=== PATIENT | female | born 1955 | race Hispanic/Latino ===

== ENCOUNTER 2016-07-14 10:52 | Emergency (ER) | payer MEDICARE, OTHER ==
[2016-07-14 10:53] VITALS: BMI 31.3
[2016-07-14 11:03] VITALS: BP 129/78; PULSE 85; RESP 18; TEMP 97.8; O2SAT 97
[2016-07-14] MEDS ORDERED: Oxycodone/Acetaminophen 5/325 mg Tab PO STA (11:09)
--- NOTE | 2016-07-14 11:14 | ED PDOC ---
Arrival/HPI - General Chief Complaint: Chest Pain Time Seen by Provider: 07/14/16 11:01 - History of Present Illness Narrative History of Present Illness (Text): 07/14/16 11:11 Patient is a 60 y/o F with R sided port for prior chemotherapy, last chemotherapy 3 months ago, with last access to port 3 weeks ago (saline flush by Dr. Hopper), presenting with 1 week history of pain to R port. Patient reports that the pain is a dull constant pain non-relieved by tylenol. She reports that the pain is worse when she touches her port. She denies pain other than directly on her port site. Denies shortness of breath. She denies fever. She denies redness or discharge from port. She denies change in bowel habits or abdominal pain. She denies lump in breast. Past Medical History - Tetanus Immunization Tetanus Immunization: Unknown - Past Medical History Past Medical History: No Previous - Cardiac Hx Cardiac Disorders: No - Pulmonary Hx Respiratory Disorders: Yes Hx Pneumonia: Yes - Neurological Hx Neurological Disorder: No - HEENT Hx HEENT Disorder: No - Renal Hx Renal Disorder: Yes Hx Kidney Stones: Yes Other/Comment: renal disease - Endocrine/Metabolic Hx Endocrine Disorders: No - Hematological/Oncological Hx Blood Disorders: Yes Hx Cancer: Yes Hx Chemotherapy: Yes - Integumentary Hx Dermatological Disorder: No - Musculoskeletal/Rheumatological Hx Musculoskeletal Disorders: No Hx Falls: No - Gastrointestinal Hx Gastrointestinal Disorders: Yes Hx Gastroesophageal Reflux: Yes Other/Comment: gall stones - Genitourinary/Gynecological Hx Genitourinary Disorders: Yes Hx Urinary Tract Infection: Yes - Psychiatric Hx Psychophysiologic Disorder: Yes Hx Anxiety: Yes Hx Depression: Yes Hx Substance Use: No - Past Surgical History Past Surgical History: No Previous - Surgical History Hx Orthopedic Surgery: Yes (left foot) Other/Comment: colon surgery, tumor and polyp removed - Anesthesia Hx Anesthesia Reactions: No Hx Malignant Hyperthermia: No - Suicidal Assessment Feels Threatened In Home Enviroment: No Family/Social History Family/Social History: No Known Family HX Smoking Status: Never Smoked Hx Alcohol Use: No Hx Substance Use: No Hx Substance Use Treatment: No Allergies/Home Meds Allergies/Adverse Reactions: Allergies pamelor Allergy (Mild, Uncoded 07/14/16 11:02) SHORTNESS OF BREATH Home Medications: Home Meds Medication Instructions Recorded Confirmed Lamotrigine 200 mg PO DAILY 01/29/13 07/14/16 Venlafaxine [Effexor XR] 75 mg PO DAILY 05/20/15 07/14/16 buPROPion [Wellbutrin] 200 mg PO DAILY 05/20/15 07/14/16 Alprazolam [Xanax] 0.5 mg PO PRN PRN 07/14/16 07/14/16 Pantoprazole Sodium [Protonix] 40 mg PO DAILY 07/14/16 07/14/16 Review of Systems - Review of Systems Constitutional: absent: Fatigue, Weight Change, Fevers, Night Sweats Eyes: absent: Vision Changes ENT: absent: Hearing Changes Respiratory: absent: SOB, Cough, Sputum, Wheezing Cardiovascular: absent: Chest Pain, Palpitations, Edema, Calf Pain, CUEVAS, Orthopnea, Syncope Gastrointestinal: absent: Abdominal Pain, Constipation, Diarrhea, Nausea, Vomiting Genitourinary Female: absent: Dysuria Musculoskeletal: Arthralgias (pain to R sided port) Skin: absent: Rash, Pruritis, Laceration, Abscess, Ulcer, Cellulitis Neurological: absent: Headache, Dizziness Endocrine: absent: Diaphoresis Hemo/Lymphatic: absent: Adenopathy Psychiatric: absent: Anxiety Physical Exam Vital Signs Temp Pulse Resp BP Pulse Ox 07/14/16 11:02 97.8 F 85 18 129/78 97 Temperature: Afebrile Blood Pressure: Normal Pulse: Regular Respiratory Rate: Normal Appearance: Positive for: Well-Appearing, Non-Toxic, Comfortable Pain Distress: None Mental Status: Positive for: Alert and Oriented X 3 - Systems Exam Head: Present: Atraumatic, Normocephalic Pupils: Present: PERRL Extroacular Muscles: Present: EOMI Conjunctiva: Present: Normal Mouth: Present: Moist Mucous Membranes Neck: Present: Normal Range of Motion Respiratory/Chest: Present: Clear to Auscultation, Good Air Exchange, Other ( port to R chest wall. No tenderness. no erythema or discharge.). No: Respiratory Distress, Accessory Muscle Use Cardiovascular: Present: Regular Rate and Rhythm, Normal S1, S2. No: Murmurs Abdomen: No: Tenderness, Distention Breast/Axillary: No: Masses (no palpable mass to R breast near port but patient instructed to continue usual routine screening) Upper Extremity: Present: Normal Inspection Lower Extremity: Present: Normal Inspection Psychiatric: Present: Alert, Oriented x 3, Normal Insight, Normal Concentration Medical Decision Making ED Course and Treatment: 07/14/16 11:17 Port site does not appear infected. Patient reports pain but no tenderness on exam. Dr. Mcduffie placed port at [facility]. Paged for evaluation. Will get cxray to r/o ptx and eval of port placement. EKG done at triage shows NSR at 93bpm with non-specific ST changes unchanged from prior ekg on 12/22/15 07/14/16 12:30 resident care manager rn to evaluate patient. Chest X-ray Supervisor [place] : Harjit Coleman MD IMPRESSION: No active disease & R subclavian port visualized 07/14/16 13:12 resident care manager rn spoke to Dr. Mcduffie and he reports that she can follow-up in his office for port removal. Patient reports tylenol does not resolve pain so will dc with ultram. - RAD Interpretation Radiology Orders: 07/14/16 11:38 CHEST PORTABLE [RAD] Stat - Medication Orders Current Medication Orders: Discontinued Medications Oxycodone/Acetaminophen (Percocet 5/325 Mg Tab) 1 tab PO STAT STA Stop: 07/14/16 11:10 Last Admin: 07/14/16 11:23 Dose: 1 TAB Disposition/Present on Arrival - Present on Arrival Any Indicators Present on Arrival: No History of DVT/PE: No History of Uncontrolled Diabetes: No Urinary Catheter: No History of Decub. Ulcer: No History Surgical Site Infection Following: None - Disposition Have Diagnosis and Disposition been Completed?: Yes Diagnosis: Port catheter in place Disposition: HOME/ ROUTINE Disposition Time: 13:14 Patient Plan: Discharge Patient Problems: Current Active Problems Problem Status Diagnosed Diverticulitis of colon Acute Condition: GOOD Additional Instructions: Follow up with Dr. Mcduffie in his office for removal of port. Motrin for pain. Ultram for breakthrough pain. Return to ED if condition worsens. Prescriptions: traMADol [Ultram] 50 mg PO TID #20 tab Referrals: Ion Doll MD [Primary Care Provider] - Follow up with primary Ion Mcduffie MD [Staff Provider] - Follow up with primary
--- NOTE | 2016-07-14 12:20 | RAD ---
HISTORY: pain to R port COMPARISON: 04/10/2014 FINDINGS: LUNGS: No active pulmonary disease. PLEURA: No significant pleural effusion identified, no pneumothorax apparent. CARDIOVASCULAR: Normal heart size. Right subclavian central venous infusion port. OSSEOUS STRUCTURES: No significant abnormalities. VISUALIZED UPPER ABDOMEN: Normal. OTHER FINDINGS: None. IMPRESSION: No active disease.
--- NOTE | 2016-07-14 18:26 | CARD ---
APPROVED REPORT EKG Measurement Heart [id number] <Conclusion> Normal sinus rhythm Possible Inferior infarct, age undetermined Abnormal ECG
== END 2016-07-14 13:23 | disposition home or self-care (01) ==
LOC: ED 10:52
DX: Z45.2 Encounter for adjustment and management of vascular access device (principal)